=== PATIENT | male | born 2000 | race Caucasian/White ===

== ENCOUNTER 2019-04-21 10:52 | Emergency (ER) | payer OTHER ==
[~2019-04-21] VITALS: Ht 175.3 cm; Wt 72.7 kg
[2019-04-21 12:00] LABS: BASO % 0.4 % (0.0-1.0); EOS # 0.1 10^3/uL (0.0-0.5); EOS % 1.7 % (0.0-3.0); HEMATOCRIT 45.4 % (42.0-52.0); HEMOGLOBIN 15.6 g/dl (13.5-17.5); LYMPH # 2.5 10^3/uL (1.5-5.0); LYMPH % 34.5 % (24.0-44.0); MEAN CORPUSCULAR HEMOGLOBIN 30.8 pg (27.0-33.0); MEAN CORPUSCULAR HGB CONC 34.4 g/dl (32.0-36.5); MEAN CORPUSCULAR VOLUME 89.7 fl (80.0-96.0); MONO # 0.5 10^3/uL (0.0-0.8); MONO % 6.8 % (0.0-5.0); NEUTROPHILS % 56.3 % (36.0-66.0); PLATELET COUNT, AUTOMATED 252 10^3/uL (150-450); RED BLOOD COUNT 5.06 10^6/uL (4.30-6.10); WHITE BLOOD COUNT 7.1 10^3/uL (4.0-10.0)
[2019-04-21 12:24] LABS: ALBUMIN 4.4 GM/DL (3.2-5.2); ALT/SGPT 28 U/L (12-78); BILIRUBIN,DIRECT 0.1 MG/DL (0.0-0.2); BILIRUBIN,TOTAL 0.3 MG/DL (0.2-1.0); BLOOD UREA NITROGEN 16 MG/DL (7-18); CALCIUM LEVEL 9.3 MG/DL (8.5-10.1); CARBON DIOXIDE LEVEL 31 MEQ/L (21-32); CHLORIDE LEVEL 106 MEQ/L (98-107); CREATININE FOR GFR 0.92 MG/DL (0.70-1.30); GLUCOSE, FASTING 79 MG/DL (70-100); LIPASE 92 U/L (73-393); POTASSIUM SERUM 4.1 MEQ/L (3.5-5.1); SODIUM LEVEL 140 MEQ/L (136-145); TOTAL PROTEIN 7.5 GM/DL (6.4-8.2)
--- NOTE | 2019-04-21 13:41 | REP ---
Clinical: Right-sided pain. Technique: Real time caceres scale ultrasound examination using curved array transducer. Findings: Liver and visualized pancreas are normal in contour, size, echogenicity without focal hepatic or pancreatic lesion identified. The gallbladder is partially contracted without gallstones, wall thickening, or pericholecystic fluid. No biliary ductal dilatation is appreciated and the common bile duct measures 3 mm diameter. The right kidney is normal in reniform shape without hydronephrosis and measures 10.7 x 6.4 x 5.9 cm. No ascites in the visualized right upper quadrant. Impression: Essentially normal right upper quadrant ultrasound. Electronically Signed by Cooper De Jesus MD 04/21/2019 01:34 P
--- NOTE | 2019-04-21 13:44 | REP ---
Clinical: Right lower quadrant pain. Technique: Real time caceres scale and color evaluation using curved array transducers. Findings: Directed ultrasound examination of the right lower quadrant demonstrates normal bowel. The appendix is not visualized. No abnormal fluid collection or adenopathy noted. No focal pain with transducer pressure noted. Impression: No secondary sonographic evidence for acute appendicitis. Electronically Signed by Cooper De Jesus MD 04/21/2019 01:37 P
--- NOTE | 2019-04-21 13:44 | REP ---
Clinical: Abdominal pain. Technique: Single supine view of the abdomen and pelvis. Findings: Bowel gas pattern is nonspecific. No organomegaly. No abnormal calcifications. Skeletal structures are intact. Impression: Normal abdominal radiograph. Electronically Signed by Cooper De Jesus MD 04/21/2019 01:35 P
[2019-04-21 13:57] VITALS: BP 116/70
== END 2019-04-21 13:58 | disposition home or self-care (01) ==
LOC: M ED 10:52
DX: R10.9 Unspecified abdominal pain (principal)

== ENCOUNTER 2019-08-23 17:43 | Emergency (ER) | payer OTHER ==
[~2019-08-23] VITALS: Ht 175.3 cm; Wt 69.9 kg
[2019-08-23] MEDS ORDERED: ACET1TAB55 PO (17:49)
[2019-08-23] MEDS ORDERED: BACL10TA2 PO (17:49)
[2019-08-23] MEDS ORDERED: IBUP-1720 PO (17:49)
[2019-08-23] MEDS ORDERED: LIDO5DIS41 TOP (18:26)
[2019-08-23] MEDS ORDERED: CYCL-707 PO (18:26)
[2019-08-23] MEDS ORDERED: LIDOCAINE 5% (LIDODERM) PATCH TD ONE (18:30)
[2019-08-23] MEDS ORDERED: methylPREDNISolone 125MG 2ML VIAL IM ONE (18:30)
[2019-08-23] MEDS ORDERED: CYCLOBENZAPRINE 10MG TABLET PO ONE (18:30)
[2019-08-23 19:04] VITALS: BP 131/60
[2019-08-23] MEDS ORDERED: **NOTE PATIENT COMMENT** MISC XX SCH (21:00)
== END 2019-08-23 19:06 | disposition home or self-care (01) ==
LOC: M ED 17:43
DX: M54.5 Low back pain (principal)
CPT/HCPCS: 96372; 99283; J2930